=== PATIENT | male | born 1965 | race Caucasian/White ===

== ENCOUNTER 2017-10-06 11:59 | Emergency (ER) | payer MEDICAID ==
[2017-10-06] MEDS ORDERED: Doxycycline 100 MG Cap PO ONE (12:29)
--- NOTE | 2017-10-06 12:33 | EDM.PDOC ---
ED HPI GENERAL MEDICAL PROBLEM - General Chief Complaint: Bite:Animal, Insect Stated Complaint: TICK BITE ON LEFT SIDE AT WAISTLINE Time Seen by Provider: 10/06/17 12:25 Source of Information: Reports: Patient History Limitations: Reports: No Limitations - History of Present Illness INITIAL COMMENTS - FREE TEXT/NARRATIVE: 52 yo presents to ER following removal of deer tick from left waist. believes tick was attached for less then 24 hours. denies fevers, chills or body aches. - Related Data Allergies Allergy/AdvReac Type Severity Reaction Status Date / Time No Known Allergies Allergy Verified 10/06/17 12:14 Home Meds: Home Meds NK [No Known Home Meds] 10/06/17 [History] Past Medical History - Past Surgical History Male Surgical History: Reports: Other (See Below) Other Male Surgeries/Procedures: testiclular c/a Social & Family History - Tobacco Use Smoking Status *Q: Never Smoker ED ROS GENERAL - Review of Systems Review Of Systems: See Below Constitutional: Denies: Fever, Chills, Malaise Respiratory: Denies: Shortness of Breath, Wheezing Cardiovascular: Denies: Chest Pain ED EXAM, ANIMAL BITE - Physical Exam Exam: See Below Exam Limited By: No Limitations General Appearance: Alert, WD/WN, No Apparent Distress Respiratory/Chest: No Respiratory Distress Skin Exam: Rash (left flank target lesion) Course - Vital Signs Last Recorded V/S: Last Vital Signs Temp 35.7 C 10/06/17 12:17 Pulse 77 10/06/17 12:17 Resp 16 10/06/17 12:17 BP 132/90 10/06/17 12:17 Pulse Ox 95 10/06/17 12:17 - Orders/Labs/Meds Orders: Active Orders 24 hr Category Date Time Status Doxycycline [Vibramycin] Med 10/06/17 12:29 Once 200 mg PO ONETIME ONE - Re-Assessments/Exams Free Text/Narrative Re-Assessment/Exam: 10/06/17 12:31 prophylactic doxycycline given in ER Departure - Departure Time of Disposition: 12:31 Disposition: Home, Self-Care 01 Condition: Good Clinical Impression: Tick bite of left flank Qualifiers: Encounter type: initial encounter Qualified Code(s): S30.861A - Insect bite ( nonvenomous) of abdominal wall, initial encounter; W57.XXXA - Bitten or stung by nonvenomous insect and other nonvenomous arthropods, initial encounter - Discharge Information Instructions: Tick Bite Information, Adult Referrals: PCP,None [Primary Care Provider] - Additional Instructions: wash with warm soapy water - My Orders Last 24 Hours: My Active Orders 10/06/17 12:29 Doxycycline [Vibramycin] 200 mg PO ONETIME ONE - Assessment/Plan Last 24 Hours: My Active Orders 10/06/17 12:29 Doxycycline [Vibramycin] 200 mg PO ONETIME ONE
== END 2017-10-06 12:40 | disposition home or self-care (01) ==
LOC: JP.ED 11:59
DX: S30.861A Insect bite (nonvenomous) of abdominal wall, initial encounter (principal); W57.XXXA Bitten or stung by nonvenomous insect and other nonvenomous arthropods, initial encounter
CPT/HCPCS: 99283; A9270